=== PATIENT | female | born 1960 | race Caucasian/White ===

== ENCOUNTER 2019-06-30 18:47 | Emergency (ER) | payer SELFPAY ==
[~2019-06-30] VITALS: Ht 154.9 cm; Wt 81.6 kg
[~2019-06-30 18:47] MED LIST: IBUP-974
[2019-06-30 18:49] VITALS: BP 159/109
[2019-06-30 20:46] VITALS: BP 159/109
== END 2019-06-30 20:48 | disposition home or self-care (01) ==
LOC: MED 18:47
DX: I10 Essential (primary) hypertension (principal); Z00.00 Encounter for general adult medical examination without abnormal findings; F32.89 Other specified depressive episodes; F41.9 Anxiety disorder, unspecified
CPT/HCPCS: 99283